=== PATIENT | female | born 1955 | race Caucasian/White ===

== ENCOUNTER 2021-01-12 08:47 | Day surgery (SDC) | payer MEDICAID ==
[2021-01-12] MEDS ORDERED: Propofol 200 MG/20 ML SDV ONE (09:06)
[2021-01-12] MEDS ORDERED: fentaNYL 100 MCG/2 ML SDV ONE (09:07)
[2021-01-12] MEDS ORDERED: Midazolam 1 MG/ML 2 ML SDV ONE (09:07)
[2021-01-12] MEDS ORDERED: Dextrose 5%-Lactated Ringers 1,000 ML IV SCH (09:15)
--- NOTE | 2021-01-24 12:55 | OR ---
DATE OF PROCEDURE: 01/12/2021 SURGEON: Joey Rosales MD PREOPERATIVE DIAGNOSIS: History of colon polyps. POSTOPERATIVE DIAGNOSIS: Single small recurrent polyp involving hepatic flexure of colon. OPERATIVE PROCEDURE: Flexible colonoscopy with polypectomy by snare technique. ANESTHESIA: IV sedation. INDICATIONS FOR PROCEDURE: This is a 65-year-old female presenting with a history of colon polyps for a followup colonoscopy with polypectomy and/or biopsies as indicated. Potential risks including bleeding and perforation were discussed, and the patient wishes to proceed. DETAILS OF PROCEDURE: The patient was taken to the operating room and placed in a left lateral decubitus position. IV sedation was administered, after which the initial digital rectal exam was performed, was unremarkable. Colonoscope was passed into the rectum with retroflexion revealing uncomplicated hemorrhoidal columns. Scope was eventually passed to the level of the cecum. The prep was fairly good. Only small liquid stool was present to that level. There were no diverticula. No areas of colitis. A single polyp measuring around 2 to 3 mm was located in the hepatic flexure of the colon. Otherwise, there were no additional signs of polyp formation or signs of neoplasia. The polyp was then excised by means of cautery snare technique and sent for histologic evaluation. Good hemostasis at the polypectomy site was confirmed. The scope was withdrawn. The above findings reconfirmed, and the procedure then concluded. Assuming that today's polyp has some adenomatous component to it, a followup colonoscopy should be considered in 3 years. Joey Rosales MD /[id number]
== END 2021-01-12 12:45 | disposition home or self-care (01) ==
LOC: JP.SDS 08:47
PROVIDERS: ATTEND Surgery
DX: Z12.11 Encounter for screening for malignant neoplasm of colon (principal); D12.3 Benign neoplasm of transverse colon; K64.9 Unspecified hemorrhoids
CPT/HCPCS: 45385; 88305; J2250; J2704; J3010; J7121

== ENCOUNTER 2022-07-17 22:13 | Emergency (ER) | payer BC, MEDICARE ==
[2022-07-18] MEDS ORDERED: Sodium Chloride 0.9% 10 ML Syringe FLUSH PRN (00:09)
[2022-07-18] MEDS ORDERED: Sodium Chloride 0.9% 50 ML IV STA (00:47)
[2022-07-18] MEDS ORDERED: Iopamidol 612 MG/ML 100 ML Bottle IV SCH (01:00)
[2022-07-18] MEDS ORDERED: Aluminum Hydroxide/Magnesium Hydroxide/Simethicone Susp 30 ML Cup PO STA (01:30)
== END 2022-07-18 01:51 | disposition home or self-care (01) ==
LOC: JP.ED 22:13
DX: K59.01 Slow transit constipation (principal); R14.3 Flatulence; R11.2 Nausea with vomiting, unspecified
CPT/HCPCS: 36415; 74177; 80048; 81001; 85025; 86140; 99284; A9270; J3490; Q9967

== ENCOUNTER 2024-10-28 07:56 | Day surgery (SDC) | payer MEDICARE, BC ==
[~2024-10-28 07:56] MED LIST: Midazolam 1 MG/ML 2 ML SDV ONE; Propofol 200 MG/20 ML SDV ONE; fentaNYL 50 MCG/ML SDV ONE
[2024-10-28] MEDS: Lactated Ringers 1,000 ML IV SCH (08:43)
== END 2024-10-28 13:03 | disposition home or self-care (01) ==
LOC: JP.SDS 07:56
PROVIDERS: ATTEND Surgery
DX: Z12.11 Encounter for screening for malignant neoplasm of colon (principal); D12.5 Benign neoplasm of sigmoid colon; Z80.0 Family history of malignant neoplasm of digestive organs
CPT/HCPCS: 00811; 45385; 45390; 88305; J2250; J2704; J3010; J7120